=== PATIENT | female | born 1990 | race Two or more races ===

== ENCOUNTER 2021-09-18 20:02 | Emergency (ER) | payer BC ==
[~2021-09-18] VITALS: Ht 162.6 cm; Wt 72.0 kg
[2021-09-18] MEDS ORDERED: MORPHINE SULFATE 4 MG/ML INJ. ONE (20:29)
[2021-09-18] MEDS ORDERED: MORPHINE SULFATE 4 MG/ML INJ. IV PRN (20:30)
[2021-09-18] MEDS ORDERED: ONDANSETRON PF 4 MG/2 ML VIAL. IVP ONE (20:30)
[2021-09-18] MEDS ORDERED: IV NORMAL SALINE 1000ML BAG 1,000 ML IV ONE (20:30)
--- NOTE | 2021-09-18 20:32 | PHYS DOC ---
Adult General Chief Complaint Chief Complaint: VAGINAL BLEEDING HPI HPI Patient is a 30 year old female presents emergency department for evaluation of lower abdominal pain cramping and heavy vaginal bleeding which she says has been going all day today. She says she is going through 1 pad every 15 minutes and there has been clots noted. She says she was seen at [facility] for the same problem 4 days ago when she was diagnosed with a miscarriage. She is G4, P2 and is uncertain how she was. She says she gets her OB care at [facility]. She says she feels dizzy but denies fevers chills vomiting dysuria hematuria. She appears uncomfortable but nontoxic. Review of Systems Review of Systems Constitutional: Denies fever or chills [] Eyes: Denies change in visual acuity, redness, or eye pain [] HENT: Denies nasal congestion or sore throat [] Respiratory: Denies cough or shortness of breath [] Cardiovascular: No additional information not addressed in HPI [] GI: + abdominal pain. No nausea, vomiting, bloody stools or diarrhea [] : Denies dysuria or hematuria [] Musculoskeletal: Denies back pain or joint pain [] Integument: Denies rash or skin lesions [] Neurologic: Denies headache, focal weakness or sensory changes [] All other systems were reviewed and found to be within normal limits, except as documented in this note. Current Medications Current Medications Current Medications Medications (Trade) Dose Ordered Sig/Lisa Start Time Stop Time Status Last Admin Dose Admin Morphine Sulfate (Morphine Sulfate) 4 mg STK-MED ONCE 09/18/21 20:29 09/18/21 20:29 DC Ondansetron HCl (Zofran) 4 mg 1X ONCE 09/18/21 20:30 09/18/21 20:31 DC 09/18/21 20:32 4 MG Sodium Chloride 1,000 ml @ 1,000 mls/hr 1X ONCE 09/18/21 20:30 09/18/21 21:29 DC 09/18/21 20:30 1,000 MLS/HR Allergies Allergies Allergies Coded Allergies Type Severity Reaction Last Updated Verified No Known Drug Allergies 09/18/21 No Physical Exam Physical Exam Constitutional: Well developed, well nourished, no acute distress, non-toxic appearance. [] HENT: Normocephalic, atraumatic, bilateral external ears normal, oropharynx moist, no oral exudates, nose normal. [] Eyes: PERRLA, EOMI, conjunctiva normal, no discharge. [] Neck: Normal range of motion, no tenderness, supple, no stridor. [] Cardiovascular:Heart rate regular rhythm, no murmur [] Lungs & Thorax: Bilateral breath sounds clear to auscultation [] Abdomen: Bowel sounds normal, soft, diffuse lower abdominal tenderness to palpation with no rebound or guarding. Skin: Warm, dry, no erythema, no rash. [] Back: No tenderness, no CVA tenderness. [] Extremities: No tenderness, no cyanosis, no clubbing, ROM intact, no edema. [] Neurologic: Alert and oriented X 3, normal motor function, normal sensory function, no focal deficits noted. [] Gynecologic exam shows open cervical os with large clots and tissue present that I attempted to extract it all however there appeared to be some clots remaining in her cervical os. Current Patient Data Vital Signs Vital Signs Date Time Temp Pulse Resp B/P (MAP) Pulse Ox O2 Delivery O2 Flow Rate FiO2 09/18/21 20:36 98.0 100 16 148/75 (99) 100 Room Air 98.0 Lab Values Laboratory Tests Test 09/18/21 20:27 09/18/21 21:16 White Blood Count 9.7 x10^3/uL (4.0-11.0) Red Blood Count 4.36 x10^6/uL (3.50-5.40) Hemoglobin 11.9 g/dL (12.0-15.5) L Hematocrit 35.1 % (36.0-47.0) L Mean Corpuscular Volume 81 fL (79-100) Mean Corpuscular Hemoglobin 27 pg (25-35) Mean Corpuscular Hemoglobin Concent 34 g/dL (31-37) Red Cell Distribution Width 13.1 % (11.5-14.5) Platelet Count 273 x10^3/uL (140-400) Neutrophils (%) (Auto) 56 % (31-73) Lymphocytes (%) (Auto) 37 % (24-48) Monocytes (%) (Auto) 5 % (0-9) Eosinophils (%) (Auto) 1 % (0-3) Basophils (%) (Auto) 1 % (0-3) Neutrophils # (Auto) 5.5 x10^3/uL (1.8-7.7) Lymphocytes # (Auto) 3.6 x10^3/uL (1.0-4.8) Monocytes # (Auto) 0.5 x10^3/uL (0.0-1.1) Eosinophils # (Auto) 0.1 x10^3/uL (0.0-0.7) Basophils # (Auto) 0.1 x10^3/uL (0.0-0.2) Maternal Serum HCG Beta Subunit 3959 mIU/mL (0-5) H Sodium Level 141 mmol/L (136-145) Potassium Level 3.6 mmol/L (3.5-5.1) Chloride Level 103 mmol/L (98-107) Carbon Dioxide Level 26 mmol/L (21-32) Anion Gap 12 (6-14) Blood Urea Nitrogen 9 mg/dL (7-20) Creatinine 0.8 mg/dL (0.6-1.0) Estimated GFR (Cockcroft-Gault) 84.2 BUN/Creatinine Ratio 11 (6-20) Glucose Level 101 mg/dL (70-99) H Calcium Level 9.2 mg/dL (8.5-10.1) Total Bilirubin 0.3 mg/dL (0.2-1.0) Aspartate Amino Transferase (AST) 17 U/L (15-37) Alanine Aminotransferase (ALT) 20 U/L (14-59) Alkaline Phosphatase 106 U/L (46-116) Total Protein 8.1 g/dL (6.4-8.2) Albumin 4.0 g/dL (3.4-5.0) Albumin/Globulin Ratio 1.0 (1.0-1.7) Urine Collection Type Unknown Urine Color (Auto) Colorless Urine Turbidity Clear Urine pH (Auto) 6.5 (<5.0-8.0) Urine Specific [place] 1.003 (1.000-1.030) Urine Protein (Auto) Negative mg/dL (Negative) Urine Glucose (Auto)(UA) Negative mg/dL (Negative) Urine Ketones (Auto) Negative mg/dL (Negative) Urine Blood (Auto) Large (Negative) Urine Nitrite Negative (Negative) Urine Bilirubin (Auto) Negative (Negative) Urine Urobilinogen (Auto) Normal mg/dL (Normal) Urine Leukocyte Esterase (Auto) Negative (Negative) Urine RBC 20-40 /HPF (0-2) Urine WBC 0 /HPF (0-4) Urine Squamous Epithelial Cells Occ /LPF Urine Bacteria 0 /HPF (0-FEW) Laboratory Tests 09/18/21 20:27 Laboratory Tests 09/18/21 20:27 EKG EKG [] Radiology/Procedures Radiology/Procedures [] Course & Med Decision Making Course & Med Decision Making I will check labs and imaging treat symptoms and reassess. Patient has hyper echogenicity on her ultrasound of her endometrium. I did extract a large amount of clots and tissue on pelvic exam but she certainly may have some tissue and clots that are internal but I could not get to. Patient says that she think she was approximately 9 weeks when she had a miscarriage and that she has been placed on Cytotec once by her primary senior medical technologist. I spoke to our OB on-call Dr. Laureano and he said we could repeat the Cytotec but did not recommend emergent D&C given she has minimal anemia and has normal vital signs and her pain is now controlled. Patient says that her hCG was 20,004 days ago and given it is 3000 today she certainly is having a miscarriage likely an incomplete miscarriage at this point. I offered to have her admitted to the hospital for further senior medical technologist consultation but she refused and that she has an appoint with her OB tomorrow and she can discuss D&C with her primary senior medical technologist tomorrow in the clinic. Patient did not have large amount of hemorrhage on my exam and she is hemodynamically stable and requesting to be discharged so I will discharge her in stable condition. Have her keep her follow-up tomorrow and I told her she could come back to the emergency department anytime with worsening pain bleeding or other general concerns. Patient aware and agreeable with plan and verbalized understanding of the above instructions. Dragon Disclaimer Dragon Disclaimer This electronic medical record was generated, in whole or in part, using a voice recognition dictation system. Departure Departure Impression: Primary Impression: Incomplete miscarriage Additional Impression: Anemia Disposition: HOME / SELF CARE / HOMELESS Condition: STABLE Patient Instructions: Incomplete Miscarriage Problem Qualifiers MAG ARRIETA DO September 18, 2021 20:32
[2021-09-18 20:38] LABS: BASO # 0.1 x10^3/uL (0.0-0.2); BASO % 1 % (0-3); EOS # 0.1 x10^3/uL (0.0-0.7); EOS % 1 % (0-3); HEMATOCRIT 35.1 % (36.0-47.0); HEMOGLOBIN 11.9 g/dL (12.0-15.5); LYMPH # 3.6 x10^3/uL (1.0-4.8); LYMPH % 37 % (24-48); MEAN CORPUSCULAR HEMOGLOBIN 27 pg (25-35); MEAN CORPUSCULAR HGB CONC 34 g/dL (31-37); MEAN CORPUSCULAR VOLUME 81 fL (79-100); MONO # 0.5 x10^3/uL (0.0-1.1); MONO % 5 % (0-9); NEUT # 5.5 x10^3/uL (1.8-7.7); NEUT % 56 % (31-73); PLATELET COUNT 273 x10^3/uL (140-400); RED BLOOD COUNT 4.36 x10^6/uL (3.50-5.40); RED CELL DISTRIBUTION WIDTH 13.1 % (11.5-14.5); WHITE BLOOD COUNT 9.7 x10^3/uL (4.0-11.0)
[2021-09-18 20:55] LABS: CALCIUM 9.2 mg/dL (8.5-10.1); CREATININE 0.8 mg/dL (0.6-1.0); GFR 84.2; POTASSIUM 3.6 mmol/L (3.5-5.1)
[2021-09-18 21:01] LABS: TOTAL BILIRUBIN 0.3 mg/dL (0.2-1.0); TOTAL PROTEIN 8.1 g/dL (6.4-8.2)
[2021-09-18 21:40] LABS: BACTERIA,URINE 0 /HPF (0-FEW); RBC,URINE 20-40 /HPF (0-2); WBC,URINE 0 /HPF (0-4)
[2021-09-18 22:50] VITALS: BP 106/56
--- NOTE | 2021-09-18 22:54 | RAD ---
OB ultrasound less than 14 weeks 09/18/2021 CLINICAL HISTORY: First trimester . Vaginal bleeding. TECHNIQUE: A transvaginal ultrasound study was performed. Multiple images were obtained. FINDINGS: The uterus is within normal limits in size and echogenicity. It measures 8.0 x 5.0 x 3.8 cm in longitudinal, transverse, and the AP dimensions. The endometrial echo complex measures 1.3 cm in thickness which is within normal limits. It is slightly heterogeneous. No gestational sac is seen wit hin the endometrial canal. No focal abnormality of the uterus is seen. Both ovaries are within normal limits in size and echogenicity. The right ovary measures 3.1 x 1.6 x 1.4 cm in size. The left ovary measures 3.8 x 1.7 x 1.2 cm in size. No adnexal mass is seen. No free fluid is noted. IMPRESSION: Negative study. No IUP is seen. This ultrasound finding could be seen with an very early IUP, missed spontaneous or possibly due to an occult ectopic . Clinical correlation and correlation with the patient's serial beta hCG level is recommended. Electronically signed by: Arnoldo Mendez MD (09/18/2021 10:51 PM) [id number]
== END 2021-09-18 23:35 | disposition home or self-care (01) ==
LOC: ER 20:02
DX: O03.4 Incomplete spontaneous abortion without complication (principal); D64.9 Anemia, unspecified
CPT/HCPCS: 36415; 76801; 76817; 80053; 81001; 84702; 85025; 86850; 86900; 86901; 96361; 96374; 96375; 99285; J2270; J2405; J7030